=== PATIENT | male | born 1970 | race Caucasian/White ===

== ENCOUNTER → 2017-07-22 | Outpatient (CLI) | payer OTHER ==
[~2017-07-22] MED LIST: ACIDOPHILUS1 EAC1 PO; ALBIPROI INH; ALBU.083IS; ALBU.083IS IH; ALBU2.5V5 INH; ALBU90OI INH; ALBU90OI6 INH; AMOCLA500 PO; AMOCLA875 PO; AMOX500; AMOX875; ASPI325 PO; AZIT250 PO; Augmentin 875-1 EACH PO; BASAGLAR K100 UNIT/1 SC; Bactrim Ds Tab1 EACH PO; CEPH500 PO; CLIN150 PO; CLON1 PO; CLOP75 PO; CODGUAEL PO; DOCU100 PO; DULO30 PO; ERYT.5TO OD; FLUSAL115 INH; FLUT1DIS5 INH; FURO20 PO; GEMF600 PO; GLIP5 PO; HYDACE5 PO; Humalog100 UNIT/1 SC; Hydrocodone-Ap1 EA23 PO; IBUP600 PO; INSR10I SC; INSULANI SC; Keflex500 MG PO; LEVFLO500 PO; LEVO750 PO; LISI20 PO; LISI5 PO; LORA1 PO; METF500 PO; METO25ER; MUPI2TC TOP; MUPI2TO TOP; NEBI5 PO; OXYACE5T PO; OXYACE7.5T PO; OXYC5 PO; OXYGEN 2L AT NIGHT; PIOG15 PO; PRED10 PO; PRED20 PO; PREG150 PO; PREG200 PO; PROBIOTIC1 EACH PO; Percocet 5-3251 EACH PO; Prednisone20 MG PO; RXERYTOPTH OP; RXHYDGUAS PO; RXOXYACE PO; RXSULTRIDS PO; SULTRIDS PO; Sulfamethoxazo1 EAC4 PO; TIOT18 INH; Zofran4 MG PO; [UNRECOGNIZED DRUG - CODE] OP; [UNRECOGNIZED DRUG - REMARK]; [UNRECOGNIZED DRUG - REMARK]
[2017-07-22 10:21] LABS: Albumin, Blood 3.6 g/dL (3.4-5.0); Anion Gap 6 mmol/L (6-16); Blood Urea Nitrogen 12 mg/dL (8-24); Bun/Creatinine Ratio 13.7 (12.0-20.0); CO2, Blood 30 mmol/L (21-32); Calcium, Blood 8.8 mg/dL (8.5-10.1); Chloride, Blood 101 mmol/L (98-108); Creatinine, Blood 0.87 mg/dL (0.60-1.20); Glomerular Filtration Rate >60 (60-); Glucose, Blood 188 mg/dL (70-99); Phosphorus, Blood 4.1 mg/dL (2.5-4.9); Potassium, Blood 4.1 mmol/L (3.5-5.5); Sodium, Blood 137 mmol/L (136-145)
== END ==
LOC: OLS 07:44
PROVIDERS: Family Medicine
DX: E11.9 Type 2 diabetes mellitus without complications (principal)
CPT/HCPCS: 36415; 80069; 83036

== ENCOUNTER → 2017-07-23 | Outpatient (CLI) | payer OTHER ==
[~2017-07-23] MED LIST changes: -ACIDOPHILUS1 EAC1 PO; -ALBU2.5V5 INH; -Augmentin 875-1 EACH PO; -BASAGLAR K100 UNIT/1 SC; -DOCU100 PO; +FLUSAL2505 INH; -FLUT1DIS5 INH; +Humalog100 UNIT/1; -Humalog100 UNIT/1 SC; -Hydrocodone-Ap1 EA23 PO; +OXYC5; -OXYC5 PO; -PROBIOTIC1 EACH PO; -Sulfamethoxazo1 EAC4 PO; +Ventolin Soln3 ML INH
== END | disposition home or self-care (01) ==
LOC: LAB SHORT 17:52 → LAB EV 17:52
DX: L03.031 Cellulitis of right toe (principal)
CPT/HCPCS: 87070; 87075; 87077; 87147; 87186; 87205

== ENCOUNTER 2017-07-28 09:54 | Day surgery (SDC) | payer OTHER ==
[~2017-07-28] VITALS: Ht 185.4 cm; Wt 121.4 kg
[~2017-07-28 09:54] MED LIST changes: -ASPI325 PO; -CLOP75 PO
[2017-07-28] MEDS ORDERED: CLOP75 PO (14:23)
[2017-07-28] MEDS ORDERED: ASPI325 PO (14:44)
== END 2017-07-28 23:22 | disposition home or self-care (01) ==
LOC: MHTC 09:54 → ICUW 16:49 → ICUE 16:54 → MHTC 23:22
PROC: 047K3Z1 Dilation of Right Femoral Artery using Drug-Coated Balloon, Percutaneous Approach (ICD-10-PCS; principal; 2017-07-28)
PROC: 04CK3ZZ Extirpation of Matter from Right Femoral Artery, Percutaneous Approach (ICD-10-PCS; principal; 2017-07-28)
DX: E11.51 Type 2 diabetes mellitus with diabetic peripheral angiopathy without gangrene (principal); I70.235 Atherosclerosis of native arteries of right leg with ulceration of other part of foot; L97.519 Non-pressure chronic ulcer of other part of right foot with unspecified severity; I70.92 Chronic total occlusion of artery of the extremities; I10 Essential (primary) hypertension; J45.909 Unspecified asthma, uncomplicated; G47.33 Obstructive sleep apnea (adult) (pediatric); F41.9 Anxiety disorder, unspecified; F17.210 Nicotine dependence, cigarettes, uncomplicated; Z99.81 Dependence on supplemental oxygen; Z79.4 Long term (current) use of insulin
CPT/HCPCS: 37225; 75630; 75774; 82947; 85347; 93005; 93010; C1714; C1725; C1769; C1884; C1887; C2623; J1644; J2250; J2405; J2720; J3010; J7030; J7040; J7120; Q9967

== ENCOUNTER 2017-11-14 12:17 | Inpatient (IN) | payer OTHER ==
[~2017-11-14] VITALS: Ht 185.4 cm; Wt 117.9 kg
[~2017-11-14 12:17] MED LIST changes: -BASAGLAR K100 UNIT/1 SC; -PROBIOTIC1 EACH PO
[2017-11-14 13:14] LABS: BASOPHILS ABSOLUTE AUTO 0.05 K/mm3 (0.00-0.23); BASOPHILS PERCENT AUTO 1 % (0-2); EOSINOPHILS ABSOLUTE AUTO 0.27 K/mm3 (0.00-0.68); EOSINOPHILS PERCENT AUTO 3 % (0-6); Hemoglobin 19.4 g/dL (13.5-17.5); IMMATURE GRAN ABSOLUTE AUTO 0.05 K/mm3 (0.00-0.10); IMMATURE GRAN PERCENT AUTO 1 % (0-1); LYMPHOCYTES ABSOLUTE AUTO 1.72 K/mm3 (0.84-5.20); LYMPHOCYTES PERCENT AUTO 17 % (21-46); MONOCYTES ABSOLUTE AUTO 1.18 K/mm3 (0.16-1.47); MONOCYTES PERCENT AUTO 12 % (4-13); Mean Corpuscular HGB 30.6 pg (26.0-34.0); Mean Corpuscular HGB Conc 32.9 g/dL (31.5-36.5); Mean Corpuscular Volume 93 fL (80-100); Mean Platelet Volume 9.7 fL (9.1-12.4); NEUTROPHILS ABSOLUTE AUTO 6.85 K/mm3 (1.96-9.15); NEUTROPHILS PERCENT AUTO 68 % (41-73); Platelet Count 182 K/mm3 (150-400); RDW Coefficient Variation 14.1 % (11.7-14.2); Red Blood Cell Count 6.35 M/mm3 (4.30-5.90); White Blood Cell Count 10.12 K/mm3 (4.00-11.30)
[2017-11-14 13:28] LABS: Hematocrit 58.9 % (37.0-53.0)
[2017-11-14 13:35] LABS: Source, Urine Clean Catch
[2017-11-14 13:38] LABS: Alanine Aminotransfer (ALT/SGP 29 U/L (12-78); Albumin, Blood 3.4 g/dL (3.4-5.0); Albumin/Globulin Ratio 0.8 (0.8-1.8); Alk Phos 134 U/L (50-136); Anion Gap 6 mmol/L (6-16); Aspartate Aminotrans (AST/SGOT 26 U/L (12-37); Bilirubin, Total 0.4 mg/dL (0.1-1.0); Blood Urea Nitrogen 8 mg/dL (8-24); Bun/Creatinine Ratio 9.8 (12.0-20.0); CO2, Blood 33 mmol/L (21-32); Calcium, Blood 8.5 mg/dL (8.5-10.1); Chloride, Blood 97 mmol/L (98-108); Creatinine, Blood 0.82 mg/dL (0.60-1.20); Glomerular Filtration Rate >60 (60-); Glucose, Blood 238 mg/dL (70-99); Potassium, Blood 4.3 mmol/L (3.5-5.5); Sodium, Blood 136 mmol/L (136-145); Total Protein, Blood 7.4 g/dL (6.4-8.2)
[2017-11-14 13:40] LABS: Bilirubin, Urine Neg (Neg); Blood, Urine Neg (Neg); Glucose Qualitative, Urine 4+ (Neg); Ketones, Urine Neg (Neg); Leukocyte Esterase, Urine Neg (Neg); Nitrite, Urine Neg (Neg); Protein, Urine 2+ (Neg); Urobilinogen, Urine NORM (Normal)
[2017-11-14 13:51] LABS: Appearance, Urine Clear (Clear); Color, Urine Yellow (P-Yellow)
[2017-11-14 13:52] LABS: Bacteria Not Seen /hpf; Red Blood Cells, Urine Not Seen /hpf (0-2); Squamous Epithelial Cells Not Seen /hpf (Few)
[2017-11-14 13:53] LABS: White Blood Cells, Urine Not Seen /hpf (0-5)
[2017-11-14] MEDS ORDERED: BASAGLAR K100 UNIT/1 SC ×2 (18:15→18:16)
[2017-11-15 04:22] LABS: BASOPHILS ABSOLUTE AUTO 0.04 K/mm3 (0.00-0.23); BASOPHILS PERCENT AUTO 0 % (0-2); EOSINOPHILS ABSOLUTE AUTO 0.35 K/mm3 (0.00-0.68); EOSINOPHILS PERCENT AUTO 3 % (0-6); Hemoglobin 19.5 g/dL (13.5-17.5); IMMATURE GRAN ABSOLUTE AUTO 0.05 K/mm3 (0.00-0.10); IMMATURE GRAN PERCENT AUTO 1 % (0-1); LYMPHOCYTES ABSOLUTE AUTO 1.56 K/mm3 (0.84-5.20); LYMPHOCYTES PERCENT AUTO 15 % (21-46); MONOCYTES ABSOLUTE AUTO 0.94 K/mm3 (0.16-1.47); MONOCYTES PERCENT AUTO 9 % (4-13); Mean Corpuscular HGB 30.2 pg (26.0-34.0); Mean Corpuscular HGB Conc 32.4 g/dL (31.5-36.5); Mean Corpuscular Volume 93 fL (80-100); Mean Platelet Volume 9.7 fL (9.1-12.4); NEUTROPHILS ABSOLUTE AUTO 7.82 K/mm3 (1.96-9.15); NEUTROPHILS PERCENT AUTO 73 % (41-73); Platelet Count 191 K/mm3 (150-400); RDW Coefficient Variation 13.9 % (11.7-14.2); RDW Standard Deviation 47.6 fL (35.1-46.3); Red Blood Cell Count 6.45 M/mm3 (4.30-5.90); White Blood Cell Count 10.76 K/mm3 (4.00-11.30)
[2017-11-15 04:24] LABS: Hematocrit 60.2 % (37.0-53.0)
[2017-11-15 04:41] LABS: Anion Gap 6 mmol/L (6-16); Blood Urea Nitrogen 8 mg/dL (8-24); Bun/Creatinine Ratio 9.1 (12.0-20.0); CO2, Blood 32 mmol/L (21-32); Calcium, Blood 8.4 mg/dL (8.5-10.1); Chloride, Blood 102 mmol/L (98-108); Creatinine, Blood 0.88 mg/dL (0.60-1.20); Glomerular Filtration Rate >60 (60-); Glucose, Blood 92 mg/dL (70-99); Potassium, Blood 4.4 mmol/L (3.5-5.5); Sodium, Blood 140 mmol/L (136-145)
[2017-11-16] MEDS ORDERED: PROBIOTIC1 EACH PO (10:37)
[2017-11-16] MEDS ORDERED: AMOCLA500 PO (10:38)
== END 2017-11-16 14:56 | disposition home or self-care (01) | DRG 464 ==
LOC: ER 12:17 → MEDS 14:40 → ENPENDDIS 11-16 08:42 → MEDS 11-16 14:56
PROVIDERS: Emergency Medicine; Internal Medicine; Podiatrist
PROC: 0JBR0ZZ Excision of Left Foot Subcutaneous Tissue and Fascia, Open Approach (ICD-10-PCS; principal; 2017-11-15 10:45)
DX: M86.9 Osteomyelitis, unspecified (principal); L03.116 Cellulitis of left lower limb; E11.621 Type 2 diabetes mellitus with foot ulcer; Z79.4 Long term (current) use of insulin; J44.9 Chronic obstructive pulmonary disease, unspecified; I10 Essential (primary) hypertension; Z98.62 Peripheral vascular angioplasty status; E11.42 Type 2 diabetes mellitus with diabetic polyneuropathy; Z79.01 Long term (current) use of anticoagulants; Z79.891 Long term (current) use of opiate analgesic; E11.51 Type 2 diabetes mellitus with diabetic peripheral angiopathy without gangrene; G89.4 Chronic pain syndrome; F17.210 Nicotine dependence, cigarettes, uncomplicated; G47.33 Obstructive sleep apnea (adult) (pediatric); F41.9 Anxiety disorder, unspecified; B95.61 Methicillin susceptible Staphylococcus aureus infection as the cause of diseases classified elsewhere; L97.522 Non-pressure chronic ulcer of other part of left foot with fat layer exposed
CPT/HCPCS: 36415; 71046; 73630; 80048; 80053; 81001; 82947; 83605; 85025; 87070; 87071; 87075; 87147; 87186; 87205; 93922; 94640; 94760; 96365; 99285-25; J1650; J2001; J2250; J2543; J3010; J7030; J7120

== ENCOUNTER → 2017-11-14 | Outpatient (CLI) | payer OTHER ==
[~2017-11-14] MED LIST changes: +ASPI325 PO; +BASAGLAR K100 UNIT/1 SC; +CLOP75 PO; +PROBIOTIC1 EACH PO
== END | disposition home or self-care (01) ==
LOC: LAB 11:26 → LAB SHORT 11:26
DX: E11.621 Type 2 diabetes mellitus with foot ulcer (principal); L97.509 Non-pressure chronic ulcer of other part of unspecified foot with unspecified severity
CPT/HCPCS: 87070; 87075; 87147; 87186; 87205

== ENCOUNTER → 2017-12-17 | Outpatient (CLI) | payer OTHER ==
[~2017-12-17] MED LIST changes: +ACIDOPHILUS1 EAC1 PO; +ALBU2.5V5 INH; +Augmentin 875-1 EACH PO; +BASAGLAR K100 UNIT/1 SC; +DOCU100 PO; -FLUSAL2505 INH; +FLUT1DIS5 INH; -Humalog100 UNIT/1; +Humalog100 UNIT/1 SC; +Hydrocodone-Ap1 EA23 PO; -OXYC5; +OXYC5 PO; +PROBIOTIC1 EACH PO; +Sulfamethoxazo1 EAC4 PO; -Ventolin Soln3 ML INH
== END | disposition home or self-care (01) ==
LOC: LAB SHORT 17:10 → LAB 17:10
DX: M86.272 Subacute osteomyelitis, left ankle and foot (principal); E11.621 Type 2 diabetes mellitus with foot ulcer; L97.524 Non-pressure chronic ulcer of other part of left foot with necrosis of bone
CPT/HCPCS: 87071; 87075; 87077; 87185; 87186; 87205

== ENCOUNTER 2017-12-23 17:14 | Inpatient (IN) | payer OTHER ==
[~2017-12-23] VITALS: Ht 185.4 cm; Wt 116.8 kg
[~2017-12-23 17:14] MED LIST changes: -ACIDOPHILUS1 EAC1 PO; -Augmentin 875-1 EACH PO; -DOCU100 PO; -Hydrocodone-Ap1 EA23 PO; -Sulfamethoxazo1 EAC4 PO
[2017-12-23 17:49] LABS: BASOPHILS ABSOLUTE AUTO 0.08 K/mm3 (0.00-0.23); BASOPHILS PERCENT AUTO 1 % (0-2); EOSINOPHILS ABSOLUTE AUTO 0.53 K/mm3 (0.00-0.68); EOSINOPHILS PERCENT AUTO 4 % (0-6); Hemoglobin 19.8 g/dL (13.5-17.5); IMMATURE GRAN ABSOLUTE AUTO 0.03 K/mm3 (0.00-0.10); IMMATURE GRAN PERCENT AUTO 0 % (0-1); LYMPHOCYTES ABSOLUTE AUTO 2.62 K/mm3 (0.84-5.20); LYMPHOCYTES PERCENT AUTO 20 % (21-46); MONOCYTES ABSOLUTE AUTO 1.02 K/mm3 (0.16-1.47); MONOCYTES PERCENT AUTO 8 % (4-13); Mean Corpuscular HGB 30.1 pg (26.0-34.0); Mean Corpuscular HGB Conc 33.1 g/dL (31.5-36.5); Mean Corpuscular Volume 91 fL (80-100); NEUTROPHILS ABSOLUTE AUTO 8.63 K/mm3 (1.96-9.15); NEUTROPHILS PERCENT AUTO 67 % (41-73); Platelet Count 304 K/mm3 (150-400); RDW Standard Deviation 43.8 fL (35.1-46.3); Red Blood Cell Count 6.57 M/mm3 (4.30-5.90); White Blood Cell Count 12.91 K/mm3 (4.00-11.30)
[2017-12-23 17:53] LABS: Hematocrit 59.8 % (37.0-53.0)
[2017-12-23] MEDS ORDERED: Sulfamethoxazo1 EAC4 PO (18:11)
[2017-12-23 18:22] LABS: Alanine Aminotransfer (ALT/SGP 42 U/L (12-78); Albumin, Blood 3.7 g/dL (3.4-5.0); Albumin/Globulin Ratio 0.8 (0.8-1.8); Alk Phos 156 U/L (50-136); Anion Gap 7 mmol/L (6-16); Aspartate Aminotrans (AST/SGOT 28 U/L (12-37); Bilirubin, Total 0.4 mg/dL (0.1-1.0); Blood Urea Nitrogen 13 mg/dL (8-24); Bun/Creatinine Ratio 13.8 (12.0-20.0); CO2, Blood 30 mmol/L (21-32); Calcium, Blood 8.9 mg/dL (8.5-10.1); Chloride, Blood 99 mmol/L (98-108); Creatinine, Blood 0.95 mg/dL (0.60-1.20); Globulin, Blood 4.7 g/dL (2.2-4.0); Glomerular Filtration Rate >60 (60-); Glucose, Blood 157 mg/dL (70-99); Potassium, Blood 4.4 mmol/L (3.5-5.5); Sodium, Blood 136 mmol/L (136-145); Total Protein, Blood 8.4 g/dL (6.4-8.2)
[2017-12-23] MEDS ORDERED: Hydrocodone-Ap1 EA23 PO (18:31)
[2017-12-23] MEDS ORDERED: AZIT250 PO (18:40)
[2017-12-24 04:59] LABS: BASOPHILS ABSOLUTE AUTO 0.09 K/mm3 (0.00-0.23); BASOPHILS PERCENT AUTO 1 % (0-2); EOSINOPHILS ABSOLUTE AUTO 0.56 K/mm3 (0.00-0.68); EOSINOPHILS PERCENT AUTO 5 % (0-6); IMMATURE GRAN ABSOLUTE AUTO 0.05 K/mm3 (0.00-0.10); IMMATURE GRAN PERCENT AUTO 0 % (0-1); LYMPHOCYTES ABSOLUTE AUTO 1.98 K/mm3 (0.84-5.20); LYMPHOCYTES PERCENT AUTO 17 % (21-46); MONOCYTES ABSOLUTE AUTO 1.11 K/mm3 (0.16-1.47); MONOCYTES PERCENT AUTO 9 % (4-13); Mean Corpuscular HGB 29.5 pg (26.0-34.0); Mean Corpuscular HGB Conc 32.3 g/dL (31.5-36.5); Mean Corpuscular Volume 92 fL (80-100); Mean Platelet Volume 9.5 fL (9.1-12.4); NEUTROPHILS ABSOLUTE AUTO 8.19 K/mm3 (1.96-9.15); NEUTROPHILS PERCENT AUTO 68 % (41-73); Platelet Count 270 K/mm3 (150-400); RDW Coefficient Variation 13.2 % (11.7-14.2); RDW Standard Deviation 43.8 fL (35.1-46.3); Red Blood Cell Count 6.43 M/mm3 (4.30-5.90); White Blood Cell Count 11.98 K/mm3 (4.00-11.30)
[2017-12-24 05:05] LABS: Hematocrit 58.9 % (37.0-53.0)
[2017-12-24 05:21] LABS: Anion Gap 5 mmol/L (6-16); Blood Urea Nitrogen 15 mg/dL (8-24); Bun/Creatinine Ratio 17.7 (12.0-20.0); CO2, Blood 32 mmol/L (21-32); Calcium, Blood 8.6 mg/dL (8.5-10.1); Chloride, Blood 102 mmol/L (98-108); Creatinine, Blood 0.85 mg/dL (0.60-1.20); Glomerular Filtration Rate >60 (60-); Glucose, Blood 173 mg/dL (70-99); Potassium, Blood 4.7 mmol/L (3.5-5.5); Sodium, Blood 139 mmol/L (136-145)
[2017-12-25 04:50] LABS: Hemoglobin 18.1 g/dL (13.5-17.5); Mean Corpuscular HGB 29.6 pg (26.0-34.0); Mean Corpuscular HGB Conc 32.1 g/dL (31.5-36.5); Mean Corpuscular Volume 92 fL (80-100); Mean Platelet Volume 9.2 fL (9.1-12.4); Platelet Count 242 K/mm3 (150-400); RDW Coefficient Variation 12.9 % (11.7-14.2); RDW Standard Deviation 43.9 fL (35.1-46.3); Red Blood Cell Count 6.12 M/mm3 (4.30-5.90); White Blood Cell Count 11.43 K/mm3 (4.00-11.30)
[2017-12-25 04:51] LABS: Hematocrit 56.4 % (37.0-53.0)
[2017-12-25] MEDS ORDERED: DOCU100 PO (17:51)
[2017-12-25] MEDS ORDERED: ACIDOPHILUS1 EAC1 PO (17:51)
[2017-12-25] MEDS ORDERED: LEVO750 PO (17:52)
[2017-12-25] MEDS ORDERED: Augmentin 875-1 EACH PO (17:52)
== END 2017-12-25 18:36 | disposition home health service (06) | DRG 617 ==
LOC: ER 17:14 → MEDS 19:08 → ENPENDDIS 12-25 17:35 → MEDS 12-25 18:36
PROVIDERS: Emergency Medicine; Internal Medicine; Podiatrist
PROC: 0QTP0ZZ Resection of Left Metatarsal, Open Approach (ICD-10-PCS; 2017-12-24)
PROC: 0Y6Y0Z0 Detachment at Left 5th Toe, Complete, Open Approach (ICD-10-PCS; principal; 2017-12-24 13:00)
DX: E11.69 Type 2 diabetes mellitus with other specified complication (principal); M86.9 Osteomyelitis, unspecified; I10 Essential (primary) hypertension; E11.40 Type 2 diabetes mellitus with diabetic neuropathy, unspecified; J44.9 Chronic obstructive pulmonary disease, unspecified; F17.210 Nicotine dependence, cigarettes, uncomplicated; G47.33 Obstructive sleep apnea (adult) (pediatric); E66.9 Obesity, unspecified; E11.51 Type 2 diabetes mellitus with diabetic peripheral angiopathy without gangrene; G89.4 Chronic pain syndrome; E11.621 Type 2 diabetes mellitus with foot ulcer; L97.522 Non-pressure chronic ulcer of other part of left foot with fat layer exposed; Z68.34 Body mass index [BMI] 34.0-34.9, adult
CPT/HCPCS: 36415; 80048; 80053; 82947; 85025; 85027; 85651; 86140; 87070; 87075; 87205; 88305; 88311; 94640; 94760; 99284; J1956; J2001; J2250; J3010; J7030; J7120

== ENCOUNTER → 2018-05-15 | Outpatient (CLI) | payer OTHER ==
[~2018-05-15] MED LIST changes: +ACIDOPHILUS1 EAC1 PO; +Augmentin 875-1 EACH PO; +DOCU100 PO; +Hydrocodone-Ap1 EA23 PO; +Sulfamethoxazo1 EAC4 PO
== END | disposition home or self-care (01) ==
LOC: LAB SHORT 14:29 → LAB 14:29
DX: L03.111 Cellulitis of right axilla (principal)
CPT/HCPCS: 87070; 87077; 87186; 87205

== ENCOUNTER 2018-06-29 09:05 | Inpatient (IN) | payer OTHER ==
[~2018-06-29] VITALS: Ht 185.4 cm; Wt 108.9 kg
[~2018-06-29 09:05] MED LIST changes: -ACIDOPHILUS1 EAC1 PO; -Humalog100 UNIT/1 SC; -OXYC5 PO; -PREG200 PO
[2018-06-29 12:20] LABS: BASOPHILS ABSOLUTE AUTO 0.08 K/mm3 (0.00-0.23); BASOPHILS PERCENT AUTO 1 % (0-2); EOSINOPHILS PERCENT AUTO 1 % (0-6); Hemoglobin 19.5 g/dL (13.5-17.5); IMMATURE GRAN ABSOLUTE AUTO 0.06 K/mm3 (0.00-0.10); IMMATURE GRAN PERCENT AUTO 1 % (0-1); LYMPHOCYTES ABSOLUTE AUTO 1.61 K/mm3 (0.84-5.20); LYMPHOCYTES PERCENT AUTO 13 % (21-46); MONOCYTES ABSOLUTE AUTO 1.01 K/mm3 (0.16-1.47); MONOCYTES PERCENT AUTO 8 % (4-13); Mean Corpuscular HGB 28.8 pg (26.0-34.0); Mean Corpuscular HGB Conc 31.4 g/dL (31.5-36.5); Mean Corpuscular Volume 92 fL (80-100); Mean Platelet Volume 9.6 fL (9.1-12.4); NEUTROPHILS ABSOLUTE AUTO 9.27 K/mm3 (1.96-9.15); NEUTROPHILS PERCENT AUTO 76 % (41-73); Platelet Count 199 K/mm3 (150-400); RDW Standard Deviation 46.6 fL (35.1-46.3); Red Blood Cell Count 6.78 M/mm3 (4.30-5.90); White Blood Cell Count 12.13 K/mm3 (4.00-11.30)
[2018-06-29 12:22] LABS: Hematocrit 62.1 % (37.0-53.0)
[2018-06-29 12:29] LABS: Alanine Aminotransfer (ALT/SGP 27 U/L (12-78); Albumin, Blood 3.3 g/dL (3.4-5.0); Albumin/Globulin Ratio 0.8 (0.8-1.8); Alk Phos 159 U/L (50-136); Anion Gap 3 mmol/L (6-16); Aspartate Aminotrans (AST/SGOT 23 U/L (12-37); Bilirubin, Total 0.9 mg/dL (0.1-1.0); Blood Urea Nitrogen 6 mg/dL (8-24); Bun/Creatinine Ratio 8.9 (12.0-20.0); CO2, Blood 34 mmol/L (21-32); Calcium, Blood 8.7 mg/dL (8.5-10.1); Chloride, Blood 99 mmol/L (98-108); Creatinine, Blood 0.68 mg/dL (0.60-1.20); Globulin, Blood 4.2 g/dL (2.2-4.0); Glomerular Filtration Rate >60 (60-); Glucose, Blood 215 mg/dL (70-99); Potassium, Blood 4.6 mmol/L (3.5-5.5); Sodium, Blood 136 mmol/L (136-145); Total Protein, Blood 7.5 g/dL (6.4-8.2)
[2018-06-29] MEDS ORDERED: AZIT250 PO (15:14)
[2018-06-29] MEDS ORDERED: ALBU3IS INH (15:16)
[2018-06-29] MEDS ORDERED: OXYC5 PO (15:21)
[2018-06-29] MEDS ORDERED: ALBU90OI INH (15:23)
[2018-06-29] MEDS ORDERED: PREG200 PO (15:25)
[2018-06-29] MEDS ORDERED: Humalog100 UNIT/1 SC (15:27)
[2018-06-29] MEDS ORDERED: ACIDOPHILUS1 EAC1 PO (15:40)
[2018-06-29] MEDS ORDERED: BASAGLAR K100 UNIT/1 SC (15:41)
[2018-06-29] MEDS ORDERED: GLIP10 (15:44)
[2018-06-30 05:10] LABS: BASOPHILS ABSOLUTE AUTO 0.09 K/mm3 (0.00-0.23); BASOPHILS PERCENT AUTO 1 % (0-2); EOSINOPHILS ABSOLUTE AUTO 0.36 K/mm3 (0.00-0.68); EOSINOPHILS PERCENT AUTO 4 % (0-6); Hemoglobin 19.5 g/dL (13.5-17.5); IMMATURE GRAN ABSOLUTE AUTO 0.03 K/mm3 (0.00-0.10); IMMATURE GRAN PERCENT AUTO 0 % (0-1); LYMPHOCYTES ABSOLUTE AUTO 0.99 K/mm3 (0.84-5.20); LYMPHOCYTES PERCENT AUTO 11 % (21-46); MONOCYTES ABSOLUTE AUTO 0.83 K/mm3 (0.16-1.47); MONOCYTES PERCENT AUTO 9 % (4-13); Mean Corpuscular HGB 28.4 pg (26.0-34.0); Mean Corpuscular HGB Conc 31.1 g/dL (31.5-36.5); Mean Corpuscular Volume 92 fL (80-100); Mean Platelet Volume 10.1 fL (9.1-12.4); NEUTROPHILS ABSOLUTE AUTO 6.53 K/mm3 (1.96-9.15); NEUTROPHILS PERCENT AUTO 74 % (41-73); Platelet Count 186 K/mm3 (150-400); RDW Coefficient Variation 14.6 % (11.7-14.2); Red Blood Cell Count 6.86 M/mm3 (4.30-5.90); White Blood Cell Count 8.83 K/mm3 (4.00-11.30)
[2018-06-30 05:12] LABS: Hematocrit 62.8 % (37.0-53.0)
[2018-06-30 05:31] LABS: Anion Gap 6 mmol/L (6-16); Blood Urea Nitrogen 7 mg/dL (8-24); Bun/Creatinine Ratio 9.3 (12.0-20.0); CO2, Blood 32 mmol/L (21-32); Calcium, Blood 8.3 mg/dL (8.5-10.1); Chloride, Blood 103 mmol/L (98-108); Creatinine, Blood 0.75 mg/dL (0.60-1.20); Glomerular Filtration Rate >60 (60-); Glucose, Blood 109 mg/dL (70-99); Potassium, Blood 4.2 mmol/L (3.5-5.5); Sodium, Blood 141 mmol/L (136-145)
--- NOTE | 2018-06-30 06:05 | NUR ---
VSS, AFEBRILE, A/O, PT ARRIVED ON THE UNIT VIA HIS OWN W/C A DIRECT ADMIT. AT THE BEDSIDE ALL NOC, NPO SINCE ARRIVAL EXCEPT FOR ICE CHIPS, IV ABTX TOLERATED W/OUT ADVERSE EFFECTS, PT ANTICIPATES AMPUTATION OF HIS GREAT TOE TODAY, BOTH FEET HAVE PREVIOUS AMPUTATIONS ALREADY, PT AND HIS CAN BE SOMEWHAT DEMANDING AND IMPATIENT W/STAFF. PT REPORTS BEING ON SELF IMPOSED BED REST FOR THE PAST SEVERAL MONTHS DUE TO THE PAIN FROM THE AMPUTATIONS ON HIS FEET. 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 SLEPT DEEPLY OVERNOC
--- NOTE | 2018-06-30 16:14 | NUR ---
Pt is an inpatient. Patient confirms NPO status and agrees with scheduled surgery. History, Chart, Medications and Allergies reviewed before start of procedure. Pre-Op teaching done. Pt verbalizes understanding. Lungs with wheezing throughout.
--- NOTE | 2018-06-30 17:19 | NUR ---
06/30/18 1719 Alberto Escalona PT RECIEVED ANTIBIOTICS PRIOR TO ARRIVAL TO OR.
--- NOTE | 2018-06-30 19:55 | NUR ---
SHIFT SUMMARY: PT IRRITABLE; COOEPRATIVE WITH CARE. AMPUTATION OF R FOOT 4TH METATARSAL THIS SHIFT; PT TOLERATED WELL; MEDICATED FOR PAIN PER EMAR. PT ON 3L O2 VIA NC; 3L O2 @ HOME. DROPLET ISOLATION FOR HX MRSA IN SPUTUM & WOUND. REPORT GIVEN TO ONCOMING ADONIS.
--- NOTE | 2018-07-01 04:06 | NUR ---
SHIFT SUMMARY THE PT ADMITTED WITH OSTEOMYELITIS OF THE R FOOT. DROPLET ISOLATION FOR MRSA IN SPUTUM FROM 2007. FULL CODE. ADA DIET. ELEVATE RLE ABOVE HIP LEVEL. CBG AT AC AND HS. INDEPENDENT TO W/C. 18G IV TO L FA. TAKES MEDICATIONS WHOLE. 3L O2. THE PT PRESENTED TO THE ED WITH OSTEOLYELITIS OF THE 4TH METATARSAL. THE PT REPORTED A NONHEALKING ULCERATION FO THE PLANTAR ASPECT OF THE BOTTOM OF THE R FOOT AND 4TH METATARSAL WITH OSTEOMYELITIS. THE ULCERATION IS REPORTED TO HAVE BEEN PRESENT FOR MORE THAN A YEAR. THE PT UNDERWENT AMPUTATION OF THE 4TH METATARSAL YESTERDAY. THE PT WAS NOTED TO HAVE DRESSING LEAKING. THIS NURSE CHANGED DRESSING AND APPLIED LIGHT PRESSURE DRESSING TO 4TH METATARSAL AND BOTTOM OF RIGHT FOOT. DEEP WOUND CULTURE COLLECTED AND SENT TO LAB. PAIN HAS REMAINED UNDER CONTROL SO FAR THIS SHIFT THIS NURSE HAS BEEN ENSURE TO REMAIN ON TOP OF MANAGING WITH BOTH ORAL AND IV PAIN MEDICATIONS. THE PT HAS BEEN VERY PLEASENT AND COOPERATIVE WITH CARE. NO APPARENT SIGNS OF ACUTE DISTRESS. APPEARED TO SLEEP COMFORTABLY MOST OF THE NIGHT. ABLE TO MAKE NEEDS KNOWN AND CALL LIGHT IN REACH.
[2018-07-01 05:31] LABS: Vancomycin, Trough 12.8 ug/mL (5.0-10.0)
[2018-07-01] MEDS ORDERED: ACIDOPHILUS LA1 EACH PO (14:18)
[2018-07-01] MEDS ORDERED: LEVO750 PO (14:19)
--- NOTE | 2018-07-01 16:22 | NUR ---
PATIENT D/C'D TO [facility] WITH SPOUSE. RX MEDICATIONS FAXED TO [facility]. D/C INSTRUCTIONS AND EDUCATION DISCUSSED WITH PATIENT AND COPY PROVIDED. PATIENT DENIES ANY FURTHER QUESTIONS OR CONCERNS.
== END 2018-07-01 16:24 | disposition home health service (06) | DRG 854 ==
LOC: ER 09:05 → ERHOLD 15:51 → MEDS 15:51 → ENPENDDIS 07-01 13:19 → MEDS 07-01 16:24
PROVIDERS: Emergency Medicine; Podiatrist; ADMIT Family Medicine
PROC: 0Y6M0ZD Detachment at Right Foot, Partial 4th Ray, Open Approach (ICD-10-PCS; principal; 2018-06-30 16:30)
DX: A41.9 Sepsis, unspecified organism (principal); M86.9 Osteomyelitis, unspecified; E11.69 Type 2 diabetes mellitus with other specified complication; E11.65 Type 2 diabetes mellitus with hyperglycemia; Z79.4 Long term (current) use of insulin; E11.40 Type 2 diabetes mellitus with diabetic neuropathy, unspecified; G47.33 Obstructive sleep apnea (adult) (pediatric); G89.4 Chronic pain syndrome; F17.210 Nicotine dependence, cigarettes, uncomplicated; J44.9 Chronic obstructive pulmonary disease, unspecified; E66.01 Morbid (severe) obesity due to excess calories; Z99.81 Dependence on supplemental oxygen; Z89.432 Acquired absence of left foot
CPT/HCPCS: 36415; 80048; 80053; 80202; 82947; 83605; 85025; 87040; 87070; 87071; 87075; 87077; 87205; 88305; 88311; 94640; 94644; 94760; 96361; 96365; 96366; 96375; 99285-25; J0696; J1815; J2250; J2405; J2543; J3010; J3370; J7030; J7050; J7120

== ENCOUNTER → 2018-07-08 | Outpatient (CLI) | payer OTHER ==
[~2018-07-08] MED LIST changes: +ACIDOPHILUS LA1 EACH PO; +ACIDOPHILUS1 EAC1 PO; +ALBU3IS INH; +GLIP10; +Humalog100 UNIT/1 SC; +OXYC5 PO; +PREG200 PO
[2018-07-08 10:46] LABS: BASOPHILS ABSOLUTE AUTO 0.08 K/mm3 (0.00-0.23); BASOPHILS PERCENT AUTO 1 % (0-2); EOSINOPHILS ABSOLUTE AUTO 0.16 K/mm3 (0.00-0.68); EOSINOPHILS PERCENT AUTO 2 % (0-6); IMMATURE GRAN ABSOLUTE AUTO 0.03 K/mm3 (0.00-0.10); IMMATURE GRAN PERCENT AUTO 0 % (0-1); LYMPHOCYTES PERCENT AUTO 16 % (21-46); MONOCYTES ABSOLUTE AUTO 0.74 K/mm3 (0.16-1.47); MONOCYTES PERCENT AUTO 7 % (4-13); Mean Corpuscular HGB 28.6 pg (26.0-34.0); Mean Corpuscular Volume 92 fL (80-100); Mean Platelet Volume 10.5 fL (9.1-12.4); NEUTROPHILS ABSOLUTE AUTO 7.73 K/mm3 (1.96-9.15); NEUTROPHILS PERCENT AUTO 75 % (41-73); Platelet Count 209 K/mm3 (150-400); RDW Standard Deviation 48.1 fL (35.1-46.3); Red Blood Cell Count 6.65 M/mm3 (4.30-5.90); White Blood Cell Count 10.34 K/mm3 (4.00-11.30)
[2018-07-08 10:49] LABS: Hematocrit 61.2 % (37.0-53.0)
== END | disposition home or self-care (01) ==
LOC: LAB HH 10:40
PROVIDERS: Podiatrist
DX: M86.271 Subacute osteomyelitis, right ankle and foot (principal)
CPT/HCPCS: 85025; 85651

== ENCOUNTER 2018-08-02 15:21 | Emergency (ER) | payer OTHER ==
[~2018-08-02] VITALS: Ht 185.4 cm; Wt 108.9 kg
[2018-08-02 16:22] LABS: BASOPHILS ABSOLUTE AUTO 0.07 K/mm3 (0.00-0.23); BASOPHILS PERCENT AUTO 1 % (0-2); EOSINOPHILS PERCENT AUTO 2 % (0-6); Hemoglobin 19.3 g/dL (13.5-17.5); IMMATURE GRAN ABSOLUTE AUTO 0.05 K/mm3 (0.00-0.10); IMMATURE GRAN PERCENT AUTO 0 % (0-1); LYMPHOCYTES PERCENT AUTO 14 % (21-46); MONOCYTES ABSOLUTE AUTO 1.13 K/mm3 (0.16-1.47); MONOCYTES PERCENT AUTO 8 % (4-13); Mean Corpuscular HGB 28.1 pg (26.0-34.0); Mean Corpuscular HGB Conc 30.6 g/dL (31.5-36.5); Mean Corpuscular Volume 92 fL (80-100); Mean Platelet Volume 10.3 fL (9.1-12.4); NEUTROPHILS ABSOLUTE AUTO 10.33 K/mm3 (1.96-9.15); NEUTROPHILS PERCENT AUTO 74 % (41-73); Platelet Count 196 K/mm3 (150-400); RDW Coefficient Variation 16.7 % (11.7-14.2); RDW Standard Deviation 51.8 fL (35.1-46.3); Red Blood Cell Count 6.88 M/mm3 (4.30-5.90); White Blood Cell Count 13.88 K/mm3 (4.00-11.30)
[2018-08-02] MEDS ORDERED: Zithromax250 MG PO (16:25)
[2018-08-02] MEDS ORDERED: (None)20 M1 PO (16:25)
[2018-08-02 16:41] LABS: Alanine Aminotransfer (ALT/SGP 34 U/L (12-78); Albumin, Blood 3.5 g/dL (3.4-5.0); Albumin/Globulin Ratio 0.9 (0.8-1.8); Alk Phos 150 U/L (50-136); Anion Gap 3 mmol/L (6-16); Aspartate Aminotrans (AST/SGOT 29 U/L (12-37); Bilirubin, Total 0.7 mg/dL (0.1-1.0); Blood Urea Nitrogen 7 mg/dL (8-24); Bun/Creatinine Ratio 9.5 (12.0-20.0); CO2, Blood 33 mmol/L (21-32); Calcium, Blood 8.8 mg/dL (8.5-10.1); Chloride, Blood 101 mmol/L (98-108); Creatinine, Blood 0.74 mg/dL (0.60-1.20); Globulin, Blood 4.1 g/dL (2.2-4.0); Glomerular Filtration Rate >60 (60-); Glucose, Blood 143 mg/dL (70-99); Potassium, Blood 4.3 mmol/L (3.5-5.5); Sodium, Blood 137 mmol/L (136-145); Total Protein, Blood 7.6 g/dL (6.4-8.2)
== END 2018-08-02 16:54 | disposition home or self-care (01) ==
LOC: ER 15:21
PROVIDERS: Physician Assistant
DX: J44.1 Chronic obstructive pulmonary disease with (acute) exacerbation (principal); I10 Essential (primary) hypertension; E11.40 Type 2 diabetes mellitus with diabetic neuropathy, unspecified; F41.9 Anxiety disorder, unspecified; Z99.81 Dependence on supplemental oxygen; Z79.899 Other long term (current) drug therapy; Z79.4 Long term (current) use of insulin; Z87.891 Personal history of nicotine dependence
CPT/HCPCS: 36415; 71046; 80053; 85025; 93005; 93010; 96374; 99284-25; J2930

== ENCOUNTER → 2018-08-21 | Outpatient (CLI) | payer OTHER ==
[~2018-08-21] MED LIST changes: +(None)20 M1 PO; +Zithromax250 MG PO
== END | disposition home or self-care (01) ==
LOC: LAB 08:10 → LAB SHORT 08:10
DX: R05 Cough (principal)
CPT/HCPCS: 87070; 87205

== ENCOUNTER 2018-10-05 18:23 | Inpatient (IN) | payer OTHER ==
[~2018-10-05] VITALS: Ht 185.4 cm; Wt 113.4 kg
[~2018-10-05 18:23] MED LIST changes: -ALBU3IS INH; +ALBU3IS NEB
[2018-10-05 19:03] LABS: BASOPHILS ABSOLUTE AUTO 0.07 K/mm3 (0.00-0.23); BASOPHILS PERCENT AUTO 1 % (0-2); EOSINOPHILS ABSOLUTE AUTO 0.07 K/mm3 (0.00-0.68); EOSINOPHILS PERCENT AUTO 1 % (0-6); Hemoglobin 19.3 g/dL (13.5-17.5); IMMATURE GRAN ABSOLUTE AUTO 0.02 K/mm3 (0.00-0.10); IMMATURE GRAN PERCENT AUTO 0 % (0-1); LYMPHOCYTES ABSOLUTE AUTO 1.32 K/mm3 (0.84-5.20); LYMPHOCYTES PERCENT AUTO 12 % (21-46); MONOCYTES ABSOLUTE AUTO 0.81 K/mm3 (0.16-1.47); MONOCYTES PERCENT AUTO 7 % (4-13); Mean Corpuscular HGB 28.6 pg (26.0-34.0); Mean Corpuscular HGB Conc 29.2 g/dL (31.5-36.5); Mean Corpuscular Volume 98 fL (80-100); Mean Platelet Volume 10.6 fL (9.1-12.4); NEUTROPHILS ABSOLUTE AUTO 9.04 K/mm3 (1.96-9.15); NEUTROPHILS PERCENT AUTO 80 % (41-73); Platelet Count 152 K/mm3 (150-400); RDW Coefficient Variation 16.3 % (11.7-14.2); RDW Standard Deviation 56.5 fL (35.1-46.3); Red Blood Cell Count 6.75 M/mm3 (4.30-5.90); White Blood Cell Count 11.33 K/mm3 (4.00-11.30)
[2018-10-05 19:24] LABS: Alanine Aminotransfer (ALT/SGP 28 U/L (12-78); Albumin, Blood 3.4 g/dL (3.4-5.0); Albumin/Globulin Ratio 0.9 (0.8-1.8); Alk Phos 146 U/L (50-136); Anion Gap 1 mmol/L (6-16); Aspartate Aminotrans (AST/SGOT 33 U/L (12-37); Bilirubin, Total 0.8 mg/dL (0.1-1.0); Blood Urea Nitrogen 8 mg/dL (8-24); Bun/Creatinine Ratio 10.7 (12.0-20.0); CO2, Blood 39 mmol/L (21-32); Calcium, Blood 8.6 mg/dL (8.5-10.1); Chloride, Blood 96 mmol/L (98-108); Creatinine, Blood 0.75 mg/dL (0.60-1.20); Globulin, Blood 3.9 g/dL (2.2-4.0); Glomerular Filtration Rate >60 (60-); Glucose, Blood 170 mg/dL (70-99); Potassium, Blood 5.2 mmol/L (3.5-5.5); Sodium, Blood 136 mmol/L (136-145); Total Protein, Blood 7.3 g/dL (6.4-8.2); Troponin I 0.017 ng/mL (0.000-0.040)
--- NOTE | 2018-10-05 22:40 | NUR ---
ASSUMED CARE REPORT TAKEN FROM ED RN. PT ARRIVED TO UNIT AND WS ABLE TO TRANSFER TO HOSP BED W/O ASSISTANCE. PT ON 5L NC AT THIS TIME, SOME WORK OF BREATHING NOTED. PT DENIES CP. RESP TACHY AND LABORED ON 5L NC W/ SATS 89-91%. PT REPORTS HE IS SOB W/ ANY EXERTION. SPOUSE AT BEDSIDE AND STAYING THE NIGHT. PT DENIES OTHER NEEDS AT THIS TIME. CALL LIGHT IN REACH.
--- NOTE | 2018-10-06 01:20 | NUR ---
PT DISORIENTED UPON WAKING. PER PT HAS BEEN EXPERIENCING IDSORIENTATION WHEN WAKING IN MIDDLE OF NIGHT. PT WAS UNABLE TO ANSWER DIRECT QUESTIONS. PT WAS ABLE TO AMBULATE TO RR, BUT DID NOT APPEAR TO BE ORIENTED TO SITUATION, TIME OR PLACE. PT CALLED THIS RN HIS DAUGHTER. PT BACK TO BED AND FELL ASLEEP QUICKLY. EDUCATED THAT BED ALARM WOULD BE TURNED ON AND THAT SHOULD PRESS CALL BUTTON IF PT NEEDED TO GET UP TO URINATE ANYMORE TONIGHT, D/T DISORIENTATION STAFF NEEDS TO BE IN ROOM WHEN PT STANDS. CALL LIGHT PLACED W/IN REACH OF PT AND .
[2018-10-06 01:55] LABS: Adenovirus Not Detected (NOT DETECT); Bordetella pertussis Not Detected (NOT DETECT); Chlamydophila pneumoniae Not Detected (NOT DETECT); Coronavirus 229E Not Detected (NOT DETECT); Coronavirus HKU1 Not Detected (NOT DETECT); Coronavirus NL63 Not Detected (NOT DETECT); Coronavirus OC43 Not Detected (NOT DETECT); Human Metapneumovirus Not Detected (NOT DETECT); Human Rhinovirus/Enterovirus Not Detected (NOT DETECT); Influenza A Not Detected (NOT DETECT); Influenza A/2009-H1 Not Detected (NOT DETECT); Influenza A/H1 Not Detected (NOT DETECT); Influenza A/H3 Not Detected (NOT DETECT); Influenza B Not Detected (NOT DETECT); Mycoplasma pneumoniae Not Detected (NOT DETECT); Parainfluenza Virus 1 Not Detected (NOT DETECT); Parainfluenza Virus 2 Not Detected (NOT DETECT); Parainfluenza Virus 3 Not Detected (NOT DETECT); Parainfluenza Virus 4 Not Detected (NOT DETECT); Respiratory Syncytial Virus Not Detected (NOT DETECT)
[2018-10-06 04:14] LABS: Hemoglobin 18.8 g/dL (13.5-17.5); Mean Corpuscular HGB 28.8 pg (26.0-34.0); Mean Corpuscular HGB Conc 29.3 g/dL (31.5-36.5); Mean Corpuscular Volume 98 fL (80-100); Mean Platelet Volume 10.6 fL (9.1-12.4); Platelet Count 120 K/mm3 (150-400); RDW Coefficient Variation 15.7 % (11.7-14.2); RDW Standard Deviation 56.7 fL (35.1-46.3); Red Blood Cell Count 6.53 M/mm3 (4.30-5.90); White Blood Cell Count 8.37 K/mm3 (4.00-11.30)
[2018-10-06 04:15] LABS: Hematocrit 64.1 % (37.0-53.0)
--- NOTE | 2018-10-06 06:35 | NUR ---
SHIFT SUMMARY PT RESTING IN ROOM COMFROTABLY AT THIS TIME. PT HAD EPISODE OF DISORIENTATION UPON WAKING T/O NIGHT. PT WAS VERY CONFUSED AND PULLING AT WIRES AND TELE. PT WAS REDIRECTABLE BACK TO BED BUT NEVER WAS REORIENTED TO TIME AND PLACE. BED ALARM WAS SET D/T CONFUSION. PER PT SPOUSE WHO WAS AT BEDSIDE, PT HAS BEEN HAVING EPISODES OF DISORIENTATION UPON WAKING IN MIDDLE OF THE NIGHT "FOR A WHILE NOW". THIS AM UPON WAKING FOR THE MORNING PT WAS MORE ORIENTED, AND WAS ABLE TO ANSWER QUESTIONS TO WHERE AND WHEN HE WAS. PT REPORTS NOT REMEMBERING WAKING UP AND BEING CONFUED LAST NIGHT. RESP EVEN AND TACHY ON 7L HI FLOW NC W/ SATS >91%. REPORTS MILD ABD PAIN THAT IS STARTING TO FEEL BETTER AFTER HAVING BM THIS AM. DENIES OTHER NEEDS. AT BEDSIDE. CALL LIGHT IN REACH.
--- NOTE | 2018-10-06 09:00 | NUR ---
ASSUMED CARE PT ALERT TO SELF, BUT CONFUSED ABOUT SITUATION AND PLACE. PT STATING "I NEED TO GO TO THE HOSPIATAL." PT REORIENTED EASILY. PT PULLING AT TUBES AND LINES. PT CONSTANTLY PULLING OFF TELEMETRY. O2 SATS ABOVE 90% ON 7L HIGH FLOW. PER RT PT REFUSES CPAP. SPOKE WITH DR. SIN ABOUT ABG. DR. SIN DISCUSSED CODE STATUS WIHT PT AND PT WISHES TO BE DNR. AT BEDSIDE DURING CONVERSATION. WILL CONTINUE TO MONITOR CLOSELY.
[2018-10-06 09:39] LABS: PCO2 Arterial 99.3 mmHg (35-45); PO2 Arterial 84.5 mmHg (80-100)
--- NOTE | 2018-10-06 10:20 | NUR ---
PT REQUESTING TO LEAVE ROOM IN WHEELCHAIR WITH . PT ENCOURAGED TO STAY IN ROOM, BUT REFUSES. PT TOLD TO ATLEAST STAY IN DEPARTMENT, SO WE CAN MONITOR TELEMETRY. PT PULLED TELEMETRY OFF. PT LEAVING ROOM WITH . PT EDUCATED ABOUT RISKS OF LEAVING THE ROOM AND THAT WE ARE UNABLE TO MONITOR HIM. PT STATES UNDERSTANDING, BUT LEAVING ANYWAY. WILL AWAIT RETURN.
--- NOTE | 2018-10-06 18:00 | NUR ---
SHIFT SUMMARY PT ALERT AND ORIENTED THIS AFTERNOON. VS STABLE. O2 SATS REMAIN ABOVE 90% ON 7L HIGH FLOW. HR NSR TO SINUS TACH. PT LEAVING ROOM BY WHEELCHAIR TO "GET A BREAK". PT ENCOURAGED TO STAY IN ROOM. AT BEDSIDE ALL SHIFT. PT SITTING UP EATING DINNER AT THIS TIME. PT SHORT OF BREATH WITH EXERTION. NO OTHER CHANGES AT THIS TIME. WILL CONTINUE TO MONITOR AND REPORT TO ONCOMING RN. CALL LIGHT IN REACH.
[2018-10-07 04:32] LABS: BASOPHILS ABSOLUTE AUTO 0.02 K/mm3 (0.00-0.23); BASOPHILS PERCENT AUTO 0 % (0-2); EOSINOPHILS PERCENT AUTO 0 % (0-6); Hemoglobin 18.4 g/dL (13.5-17.5); IMMATURE GRAN ABSOLUTE AUTO 0.07 K/mm3 (0.00-0.10); IMMATURE GRAN PERCENT AUTO 0 % (0-1); LYMPHOCYTES ABSOLUTE AUTO 0.36 K/mm3 (0.84-5.20); LYMPHOCYTES PERCENT AUTO 2 % (21-46); MONOCYTES ABSOLUTE AUTO 0.43 K/mm3 (0.16-1.47); MONOCYTES PERCENT AUTO 2 % (4-13); Mean Corpuscular HGB Conc 29.8 g/dL (31.5-36.5); Mean Corpuscular Volume 98 fL (80-100); Mean Platelet Volume 11.2 fL (9.1-12.4); NEUTROPHILS ABSOLUTE AUTO 17.43 K/mm3 (1.96-9.15); NEUTROPHILS PERCENT AUTO 95 % (41-73); Platelet Count 126 K/mm3 (150-400); RDW Coefficient Variation 15.4 % (11.7-14.2); RDW Standard Deviation 55.7 fL (35.1-46.3); Red Blood Cell Count 6.34 M/mm3 (4.30-5.90); White Blood Cell Count 18.31 K/mm3 (4.00-11.30)
[2018-10-07 04:35] LABS: Hematocrit 61.8 % (37.0-53.0)
[2018-10-07 04:44] LABS: Anion Gap -2 mmol/L (6-16); Blood Urea Nitrogen 17 mg/dL (8-24); CO2, Blood 43 mmol/L (21-32); Calcium, Blood 8.7 mg/dL (8.5-10.1); Chloride, Blood 95 mmol/L (98-108); Creatinine, Blood 0.71 mg/dL (0.60-1.20); Glomerular Filtration Rate >60 (60-); Glucose, Blood 265 mg/dL (70-99); Potassium, Blood 5.7 mmol/L (3.5-5.5); Sodium, Blood 136 mmol/L (136-145)
--- NOTE | 2018-10-07 06:32 | NUR ---
PCU NOC SHIFT SUMMARY PATIENT ALERT AND ORIENTED X4 WITH AT BEDSIDE T/O SHIFT. PATIENT COMPLIANT WITH QUESTIONS AND CARE. PATIENT REPORTS CHRONIC ONGOING PAIN IN ABD DUE TO A HERNIA REPAIR IN 2008 (HERNIA NOTED WITH HEALED SCAR ACROSS AMBILICUS) - BOWEL MOVEMENT NORMAL PER PATIENT THIS SHIFT. VSS WITH PATIENT ON 8 LPM HIGH FLOW CANNULA - PATIENT WAS COMPLIANT WITH BIPAP AND TOLERATED FOR APPROX 6 HOURS T/O THE SHIFT. PATIENT AMBULATES IN ROOM WITH STEADY GAIT INDEPENDANTLY. NO ACUTE EVENTS OR FINDINGS NOTED; PATIENT REPORTS THAT HIS 'BREATHING' IS GETTING BETTER AND HE IS HOPING TO GO HOME SOON. WILL CONTINUE TO MONITOR AND GIVE REPORT TO DAYSHIFT RN.
--- NOTE | 2018-10-07 12:35 | NUR ---
WENT IN ROOM TO TAKE PT'S BLOOD SUGAR. PT UPSET THAT HE IS NOT RECEIVED THE SAME INSULIN THAT HE GETS AT HOME. PT INFORMED THAT WE DO NOT HAVE THAT MEDICATION AVAILABLE AND THAT HE COULD BRING IN HIS HOME MEDICATION. PT UPSET AND YELLING AT STAFF. PT STATES THAT WE ARE NOT "DOING ANYTHIHG FOR HIM". CHARGE NURSE LINDA CAME IN THE ROOM TO DISCUSS PLAN OF CARE WITH PT. PT STATES HE WOULD LIKE TO LEAVE. RISKS OF LEAVING DISCUSSED WITH PT BY THIS RN AND CARE MANAGEMENT COORDINATOR. PT PERSISTENT ABOUT LEAVING. DR. SIN CALLED AND AWARE. PT LEAVING AMA. AMA FORM HAS BEEN SIGNED.
== END 2018-10-07 12:57 | disposition left against medical advice (07) | DRG 189 ==
LOC: ER 18:23 → PCU 20:54
PROVIDERS: Emergency Medicine; Hospitalist; Nurse Practitioner Acute Care; ADMIT Internal Medicine
DX: J96.21 Acute and chronic respiratory failure with hypoxia (principal); J44.1 Chronic obstructive pulmonary disease with (acute) exacerbation; E11.40 Type 2 diabetes mellitus with diabetic neuropathy, unspecified; E11.21 Type 2 diabetes mellitus with diabetic nephropathy; E66.01 Morbid (severe) obesity due to excess calories; D75.1 Secondary polycythemia; I10 Essential (primary) hypertension; G47.33 Obstructive sleep apnea (adult) (pediatric); Z66 Do not resuscitate; F41.1 Generalized anxiety disorder; F17.210 Nicotine dependence, cigarettes, uncomplicated; E11.51 Type 2 diabetes mellitus with diabetic peripheral angiopathy without gangrene; G89.4 Chronic pain syndrome; Z79.4 Long term (current) use of insulin; Z99.81 Dependence on supplemental oxygen
CPT/HCPCS: 36415; 36600; 71045; 80048; 80053; 82803; 82947; 83880; 84484; 85025; 85027; 87070; 87081; 87486; 87581; 87633; 87798; 93005; 93010; 93971; 94640; 94644; 94660; 94762; 96374; 99285-25; J1940; J2930

== ENCOUNTER 2019-01-28 19:46 | Emergency (ER) | payer OTHER ==
[~2019-01-28] VITALS: Ht 154.9 cm; Wt 110.1 kg
[2019-01-28] MEDS ORDERED: Loratadine10 MG PO (20:09)
[2019-01-28] MEDS ORDERED: MONTELUKAST SOD10 MG PO (20:10)
[2019-01-28 20:46] LABS: BASOPHILS ABSOLUTE AUTO 0.05 K/mm3 (0.00-0.23); BASOPHILS PERCENT AUTO 0 % (0-2); EOSINOPHILS ABSOLUTE AUTO 0.66 K/mm3 (0.00-0.68); EOSINOPHILS PERCENT AUTO 6 % (0-6); Hematocrit 48.5 % (37.0-53.0); Hemoglobin 16.2 g/dL (13.5-17.5); IMMATURE GRAN ABSOLUTE AUTO 0.08 K/mm3 (0.00-0.10); IMMATURE GRAN PERCENT AUTO 1 % (0-1); LYMPHOCYTES ABSOLUTE AUTO 1.89 K/mm3 (0.84-5.20); LYMPHOCYTES PERCENT AUTO 16 % (21-46); MONOCYTES ABSOLUTE AUTO 1.22 K/mm3 (0.16-1.47); MONOCYTES PERCENT AUTO 10 % (4-13); Mean Corpuscular HGB 31.3 pg (26.0-34.0); Mean Corpuscular HGB Conc 33.4 g/dL (31.5-36.5); Mean Corpuscular Volume 94 fL (80-100); Mean Platelet Volume 9.8 fL (9.1-12.4); NEUTROPHILS ABSOLUTE AUTO 8.07 K/mm3 (1.96-9.15); NEUTROPHILS PERCENT AUTO 67 % (41-73); Platelet Count 233 K/mm3 (150-400); RDW Coefficient Variation 13.7 % (11.7-14.2); RDW Standard Deviation 47.5 fL (35.1-46.3); Red Blood Cell Count 5.18 M/mm3 (4.30-5.90); White Blood Cell Count 11.97 K/mm3 (4.00-11.30)
[2019-01-28 21:08] LABS: Alanine Aminotransfer (ALT/SGP 33 U/L (12-78); Albumin, Blood 3.6 g/dL (3.4-5.0); Albumin/Globulin Ratio 0.9 (0.8-1.8); Alk Phos 114 U/L (50-136); Anion Gap 2 mmol/L (6-16); Aspartate Aminotrans (AST/SGOT 24 U/L (12-37); Bilirubin, Total 0.8 mg/dL (0.1-1.0); Blood Urea Nitrogen 9 mg/dL (8-24); Bun/Creatinine Ratio 10.8 (12.0-20.0); CO2, Blood 32 mmol/L (21-32); Calcium, Blood 8.9 mg/dL (8.5-10.1); Chloride, Blood 102 mmol/L (98-108); Creatinine, Blood 0.83 mg/dL (0.60-1.20); Globulin, Blood 3.8 g/dL (2.2-4.0); Glomerular Filtration Rate >60 (60-); Glucose, Blood 149 mg/dL (70-99); Potassium, Blood 3.9 mmol/L (3.5-5.5); Sodium, Blood 136 mmol/L (136-145); Total Protein, Blood 7.4 g/dL (6.4-8.2)
[2019-01-28] MEDS ORDERED: Cleocin HCl300 MG PO (23:34)
[2019-01-30] MEDS ORDERED: OXYC5 PO (10:46)
== END 2019-01-29 01:52 | disposition home or self-care (01) ==
LOC: ER 19:46
PROVIDERS: Physician Assistant
DX: L02.214 Cutaneous abscess of groin (principal); E11.40 Type 2 diabetes mellitus with diabetic neuropathy, unspecified; I10 Essential (primary) hypertension; J44.9 Chronic obstructive pulmonary disease, unspecified; F41.9 Anxiety disorder, unspecified; Z87.891 Personal history of nicotine dependence; Z79.51 Long term (current) use of inhaled steroids; Z79.4 Long term (current) use of insulin; Z79.899 Other long term (current) drug therapy
CPT/HCPCS: 36415; 72193; 80053; 83605; 85025; 94640; 96361; 96365-59; 96366; 96375-59; 99284-25; J1885; J3370; J7050; J7120; Q9967

== ENCOUNTER 2019-01-29 20:25 | Emergency (ER) | payer OTHER ==
[~2019-01-29] VITALS: Ht 185.4 cm; Wt 109.8 kg
[~2019-01-29 20:25] MED LIST changes: +Cleocin HCl300 MG PO; +Loratadine10 MG PO; +MONTELUKAST SOD10 MG PO
[2019-01-30] MEDS ORDERED: OXYC5 PO (10:46)
== END 2019-01-30 00:13 | disposition home or self-care (01) ==
LOC: ER 20:25
DX: L02.214 Cutaneous abscess of groin (principal); L03.314 Cellulitis of groin; Z79.4 Long term (current) use of insulin; Z79.899 Other long term (current) drug therapy; I10 Essential (primary) hypertension; J45.909 Unspecified asthma, uncomplicated; E11.40 Type 2 diabetes mellitus with diabetic neuropathy, unspecified; J44.9 Chronic obstructive pulmonary disease, unspecified; F41.9 Anxiety disorder, unspecified; Z87.891 Personal history of nicotine dependence
CPT/HCPCS: 36415; 96365; 96366; 99282-25; A9270; J3370; J7050

== ENCOUNTER 2019-01-30 10:30 | Emergency (ER) | payer OTHER ==
[~2019-01-30] VITALS: Ht 185.4 cm; Wt 109.8 kg
[2019-01-30] MEDS ORDERED: OXYC5 PO (10:46)
[2019-01-30 11:45] LABS: Calcium, Ionized (POC) 1.03 mmol/L (1.10-1.46); Chloride (POC) 97 mmol/L (98-108); Creatinine (POC) 0.7 mg/dL (0.8-1.3); Glucose (ISTAT POC) 221 mg/dL (70-99); Hemoglobin (POC) 16.7 g/dL (13.5-17.5); Potassium (POC) 4.2 mmol/L (3.5-5.5); Sodium (POC) 137 mmol/L (135-148); Total CO2 (POC) 31 mmol/L (21-32)
[2019-01-30 12:18] LABS: Vancomycin, Trough 6.1 ug/mL (5.0-10.0)
== END 2019-01-30 15:07 | disposition home or self-care (01) ==
LOC: ER 10:30
PROVIDERS: Emergency Medicine
DX: L02.214 Cutaneous abscess of groin (principal); I10 Essential (primary) hypertension; E11.40 Type 2 diabetes mellitus with diabetic neuropathy, unspecified; J44.9 Chronic obstructive pulmonary disease, unspecified; F41.9 Anxiety disorder, unspecified; E11.69 Type 2 diabetes mellitus with other specified complication; M86.9 Osteomyelitis, unspecified; Z87.891 Personal history of nicotine dependence; Z79.899 Other long term (current) drug therapy; Z79.4 Long term (current) use of insulin
CPT/HCPCS: 80047; 80202; 85014; 96374; 99282-25; J3370; J7050

== ENCOUNTER 2019-01-30 21:53 | Emergency (ER) | payer OTHER ==
[~2019-01-30] VITALS: Ht 185.4 cm; Wt 109.8 kg
== END 2019-01-31 00:35 | disposition home or self-care (01) ==
LOC: ER 21:53
DX: L02.215 Cutaneous abscess of perineum (principal); I10 Essential (primary) hypertension; E11.40 Type 2 diabetes mellitus with diabetic neuropathy, unspecified; J44.9 Chronic obstructive pulmonary disease, unspecified; F17.210 Nicotine dependence, cigarettes, uncomplicated; Z79.899 Other long term (current) drug therapy; Z79.4 Long term (current) use of insulin
CPT/HCPCS: 96365; 96366; J3370; J7050

== ENCOUNTER 2019-01-31 16:37 | Emergency (ER) | payer OTHER ==
[~2019-01-31] VITALS: Ht 185.4 cm; Wt 110.7 kg
== END 2019-01-31 19:10 | disposition home or self-care (01) ==
LOC: ER 16:37
DX: L02.215 Cutaneous abscess of perineum (principal); I10 Essential (primary) hypertension; E11.40 Type 2 diabetes mellitus with diabetic neuropathy, unspecified; J44.9 Chronic obstructive pulmonary disease, unspecified; F41.9 Anxiety disorder, unspecified; Z87.891 Personal history of nicotine dependence; Z79.899 Other long term (current) drug therapy; Z79.4 Long term (current) use of insulin
CPT/HCPCS: 96365; 96366; J3370; J7050

== ENCOUNTER → 2019-03-23 | Outpatient (CLI) | payer OTHER | END | disposition home or self-care (01) | LOC: LAB 18:01 → LAB SHORT 18:01 | DX: L03.031 Cellulitis of right toe (principal); L97.522 Non-pressure chronic ulcer of other part of left foot with fat layer exposed; L97.512 Non-pressure chronic ulcer of other part of right foot with fat layer exposed | CPT/HCPCS: 87070; 87077; 87186; 87205 ==

== ENCOUNTER 2019-09-16 19:43 | Emergency (ER) | payer OTHER ==
[~2019-09-16] VITALS: Ht 185.4 cm; Wt 113.4 kg
[~2019-09-16 19:43] MED LIST changes: -ALBU3IS NEB; -Humalog100 UNIT/1 SC; -Loratadine10 MG PO; -MONTELUKAST SOD10 MG PO; -PREG200 PO
[2019-09-16 20:21] LABS: PCO2 Venous 79.7 mmHg (38-42); PO2 Venous 25.6 mmHg (38-42); pH Blood Venous 7.36 (7.34-7.37)
[2019-09-16 20:26] LABS: BASOPHILS ABSOLUTE AUTO 0.08 K/mm3 (0.00-0.23); BASOPHILS PERCENT AUTO 1 % (0-2); EOSINOPHILS ABSOLUTE AUTO 0.09 K/mm3 (0.00-0.68); EOSINOPHILS PERCENT AUTO 1 % (0-6); Hemoglobin 20.1 g/dL (13.5-17.5); IMMATURE GRAN ABSOLUTE AUTO 0.04 K/mm3 (0.00-0.10); IMMATURE GRAN PERCENT AUTO 0 % (0-1); LYMPHOCYTES ABSOLUTE AUTO 1.53 K/mm3 (0.84-5.20); LYMPHOCYTES PERCENT AUTO 12 % (21-46); MONOCYTES PERCENT AUTO 10 % (4-13); Mean Corpuscular HGB 29.6 pg (26.0-34.0); Mean Corpuscular Volume 98 fL (80-100); Mean Platelet Volume 10.3 fL (9.1-12.4); NEUTROPHILS ABSOLUTE AUTO 9.59 K/mm3 (1.96-9.15); NEUTROPHILS PERCENT AUTO 77 % (41-73); Platelet Count 149 K/mm3 (150-400); RDW Coefficient Variation 13.2 % (11.7-14.2); RDW Standard Deviation 48.6 fL (35.1-46.3); White Blood Cell Count 12.53 K/mm3 (4.00-11.30)
[2019-09-16 20:29] LABS: Hematocrit 66.9 % (37.0-53.0)
[2019-09-16 21:09] LABS: Alanine Aminotransfer (ALT/SGP 37 U/L (12-78); Albumin, Blood 3.2 g/dL (3.4-5.0); Albumin/Globulin Ratio 0.8 (0.8-1.8); Alk Phos 142 U/L (50-136); Anion Gap 5 mmol/L (6-16); Aspartate Aminotrans (AST/SGOT 30 U/L (12-37); Bilirubin, Total 0.9 mg/dL (0.1-1.0); Blood Urea Nitrogen 8 mg/dL (8-24); CO2, Blood 39 mmol/L (21-32); Calcium, Blood 8.6 mg/dL (8.5-10.1); Chloride, Blood 88 mmol/L (98-108); Creatinine, Blood 0.89 mg/dL (0.60-1.20); Globulin, Blood 4.2 g/dL (2.2-4.0); Glomerular Filtration Rate >60 (60-); Glucose, Blood 338 mg/dL (70-99); Sodium, Blood 132 mmol/L (136-145); Total Protein, Blood 7.4 g/dL (6.4-8.2)
[2019-09-16] MEDS ORDERED: Duoneb 2.5-0.5 M3 ML NEB (21:49)
[2019-09-16] MEDS ORDERED: ALBU90OI INH (21:49)
[2019-09-16] MEDS ORDERED: OXYC5 PO (21:50)
[2019-09-16] MEDS ORDERED: ADMELOG100 UNIT/1 SC (21:51)
[2019-09-16] MEDS ORDERED: AZIT250 PO (21:52)
[2019-09-16] MEDS ORDERED: BASAGLAR K100 UNIT/2 SC (21:54)
[2019-09-16] MEDS ORDERED: MONTELUKAST SOD10 MG PO (21:54)
[2019-09-16] MEDS ORDERED: Loratadine10 MG PO (21:54)
[2019-09-16] MEDS ORDERED: TIOT18 INH (21:55)
[2019-09-16] MEDS ORDERED: WIXELA 500-501 EACH INH (21:56)
[2019-09-16] MEDS ORDERED: PREG200 PO (21:56)
[2019-09-16] MEDS ORDERED: PRED20 PO (22:27)
== END 2019-09-16 22:40 | disposition left against medical advice (07) ==
LOC: ER 19:43
PROVIDERS: Emergency Medicine
DX: J96.92 Respiratory failure, unspecified with hypercapnia (principal); J44.1 Chronic obstructive pulmonary disease with (acute) exacerbation; R09.02 Hypoxemia; E66.01 Morbid (severe) obesity due to excess calories; Z68.33 Body mass index [BMI] 33.0-33.9, adult; I10 Essential (primary) hypertension; I25.2 Old myocardial infarction; E11.40 Type 2 diabetes mellitus with diabetic neuropathy, unspecified; F17.210 Nicotine dependence, cigarettes, uncomplicated; Z79.899 Other long term (current) drug therapy; Z79.4 Long term (current) use of insulin
CPT/HCPCS: 71046; 80053; 82803; 83880; 84484; 85025; 93005; 93010; 94640; 96374; 99285-25; J2930

== ENCOUNTER 2019-09-30 14:14 | Inpatient (IN) | payer OTHER ==
[~2019-09-30] VITALS: Ht 185.4 cm; Wt 107.5 kg
[~2019-09-30 14:14] MED LIST changes: +ADMELOG100 UNIT/1 SC; +BASAGLAR K100 UNIT/2 SC; +Duoneb 2.5-0.5 M3 ML NEB; +Loratadine10 MG PO; +MONTELUKAST SOD10 MG PO; +PREG200 PO; +WIXELA 500-501 EACH INH
[2019-09-30 15:18] LABS: BASOPHILS ABSOLUTE AUTO 0.06 K/mm3 (0.00-0.23); BASOPHILS PERCENT AUTO 0 % (0-2); EOSINOPHILS ABSOLUTE AUTO 0.01 K/mm3 (0.00-0.68); EOSINOPHILS PERCENT AUTO 0 % (0-6); Hematocrit 63.4 % (37.0-53.0); Hemoglobin 19.2 g/dL (13.5-17.5); IMMATURE GRAN ABSOLUTE AUTO 0.04 K/mm3 (0.00-0.10); IMMATURE GRAN PERCENT AUTO 0 % (0-1); LYMPHOCYTES ABSOLUTE AUTO 1.25 K/mm3 (0.84-5.20); LYMPHOCYTES PERCENT AUTO 8 % (21-46); MONOCYTES ABSOLUTE AUTO 1.17 K/mm3 (0.16-1.47); MONOCYTES PERCENT AUTO 8 % (4-13); Mean Corpuscular HGB 29.1 pg (26.0-34.0); Mean Corpuscular HGB Conc 30.3 g/dL (31.5-36.5); Mean Corpuscular Volume 96 fL (80-100); Mean Platelet Volume 10.1 fL (9.1-12.4); NEUTROPHILS PERCENT AUTO 84 % (41-73); Platelet Count 166 K/mm3 (150-400); RDW Coefficient Variation 13.7 % (11.7-14.2); RDW Standard Deviation 49.2 fL (35.1-46.3); Red Blood Cell Count 6.59 M/mm3 (4.30-5.90); White Blood Cell Count 15.63 K/mm3 (4.00-11.30)
[2019-09-30 15:30] LABS: Alanine Aminotransfer (ALT/SGP 30 U/L (12-78); Albumin, Blood 2.8 g/dL (3.4-5.0); Albumin/Globulin Ratio 0.7 (0.8-1.8); Alk Phos 152 U/L (50-136); Anion Gap 0 mmol/L (6-16); Aspartate Aminotrans (AST/SGOT 32 U/L (12-37); Bilirubin, Total 0.9 mg/dL (0.1-1.0); Blood Urea Nitrogen 10 mg/dL (8-24); Bun/Creatinine Ratio 12.6 (12.0-20.0); CO2, Blood 40 mmol/L (21-32); Calcium, Blood 8.5 mg/dL (8.5-10.1); Chloride, Blood 93 mmol/L (98-108); Creatinine, Blood 0.79 mg/dL (0.60-1.20); Globulin, Blood 4.2 g/dL (2.2-4.0); Glomerular Filtration Rate >60 (60-); Glucose, Blood 322 mg/dL (70-99); Potassium, Blood 5.1 mmol/L (3.5-5.5); Sodium, Blood 133 mmol/L (136-145)
[2019-09-30] MEDS ORDERED: QUIT 22 MG BC (18:27)
[2019-09-30] MEDS ORDERED: Ativan1 MG PO (18:28)
[2019-09-30] MEDS ORDERED: FUROSEMIDE20 MG PO (18:48)
[2019-09-30] MEDS ORDERED: OXYC10TA19 PO (18:51)
--- NOTE | 2019-09-30 18:58 | NUR ---
ED Palliative Care Consult Spoke with Dr Keys and discussed case. Dr Keys reports Pt would like to be admitted to hospital and have his toe amputated. Pt is on hospice and wants to revocate. Pt will be admitted. Pt resting on gurny upon arrival. Engaged in therapeutic discussion regarding goals of care. Listened as Pt reports plan for amputation then re-admit onto hospice services. Offered therapuetic litening as Pt states "I'm on hospice for COPD and I don't want to from an infection". Encouraged to elaborate further on fears. Pt reports he knows he is dying from COPD but does not think he will soon from it. Pt reports fear of developing an infection of his toe and dying sooner. Pt also reports wanting his toe amputated to improve his quality of life. He reports hospice is not able to manage his discomfort. Instructed Pt Palliative Care will F/U tomorrow. Called [facility] and spoke with ADONIS Solitario. Discussed case with Kassi reporting Pt already D/C from hospice services. Palliative Care to F/U with Pt and assess emotional readiness for end of life care.
--- NOTE | 2019-09-30 21:23 | NUR ---
ASSUMED CARE RECEIVED REPORT FROM OMARI TOBIN RN. ASSUMED CARE OF PT. TRANSFERRED TO MEDICAL FLOOR VIA W/C. NO S/S ACUTE DISTRESS NOTED. SETTLED IN AND ORIENTED TO ROOM. PT DENIES NEEDS AT THIS TIME. CALL LIGHT AND POSSESSIONS IN REACH, WILL CONTINUE TO MONITOR.
--- NOTE | 2019-10-01 01:05 | NUR ---
0105 THIS RN IN ROOM ASSESSING PT, BI-OX ALARMING. O2 SATS BETWEEN 83-88% ON CPAP WITH 4L BLEED IN. RT PAGED, PT O2 TITRATED TO 6L. SATS BETWEEN 88-90%. PT DENIES DYSPNEA, SOB. WILL CONTINUE TO MONITOR.
[2019-10-01 05:34] LABS: BASOPHILS ABSOLUTE AUTO 0.06 K/mm3 (0.00-0.23); BASOPHILS PERCENT AUTO 1 % (0-2); EOSINOPHILS ABSOLUTE AUTO 0.08 K/mm3 (0.00-0.68); EOSINOPHILS PERCENT AUTO 1 % (0-6); IMMATURE GRAN ABSOLUTE AUTO 0.03 K/mm3 (0.00-0.10); IMMATURE GRAN PERCENT AUTO 0 % (0-1); LYMPHOCYTES ABSOLUTE AUTO 1.67 K/mm3 (0.84-5.20); LYMPHOCYTES PERCENT AUTO 13 % (21-46); MONOCYTES ABSOLUTE AUTO 1.06 K/mm3 (0.16-1.47); MONOCYTES PERCENT AUTO 8 % (4-13); Mean Corpuscular HGB 28.8 pg (26.0-34.0); Mean Corpuscular HGB Conc 29.9 g/dL (31.5-36.5); Mean Corpuscular Volume 96 fL (80-100); Mean Platelet Volume 10.1 fL (9.1-12.4); NEUTROPHILS ABSOLUTE AUTO 9.85 K/mm3 (1.96-9.15); NEUTROPHILS PERCENT AUTO 77 % (41-73); Platelet Count 159 K/mm3 (150-400); RDW Coefficient Variation 13.7 % (11.7-14.2); RDW Standard Deviation 49.4 fL (35.1-46.3); Red Blood Cell Count 6.59 M/mm3 (4.30-5.90); White Blood Cell Count 12.75 K/mm3 (4.00-11.30)
[2019-10-01 05:35] LABS: Hematocrit 63.5 % (37.0-53.0)
[2019-10-01 05:56] LABS: Anion Gap -1 mmol/L (6-16); Blood Urea Nitrogen 11 mg/dL (8-24); Bun/Creatinine Ratio 15.9 (12.0-20.0); CO2, Blood 39 mmol/L (21-32); Calcium, Blood 8.3 mg/dL (8.5-10.1); Chloride, Blood 98 mmol/L (98-108); Creatinine, Blood 0.69 mg/dL (0.60-1.20); Glomerular Filtration Rate >60 (60-); Glucose, Blood 176 mg/dL (70-99); Potassium, Blood 4.6 mmol/L (3.5-5.5); Sodium, Blood 136 mmol/L (136-145)
--- NOTE | 2019-10-01 07:53 | NUR ---
SHIFT SUMMARY PT HAS HAD AN UNEVENTFUL NIGHT. TOLERATED CPAP WELL, O2 SATS CONTINUING TO FLUCTUATE. DENIES DYSPNEA, REPORTS SOB WITH EXERTION. RESPS EVEN AND UNLABORED. VS STABLE. PT NPO SINCE MIDNIGHT FOR POTENTIAL PROCEDURE TODAY. PT DENIES NEEDS AT THIS TIME. CALL LIGHT, POSSESSIONS IN REACH, REPORT GIVEN TO DAY RN.
--- NOTE | 2019-10-01 10:36 | NUR ---
very frusterated this am when shift started, breathing treatments not what he wanted and pt in pain and short of caffeine responded to rt, was able to work some concession and get caffeine in pt and he much more cooperative now, talking to pallalitive care nurse now, at bed side
--- NOTE | 2019-10-01 10:55 | NUR ---
Met with Fortino and his Danitza this morning. He is currently NPO and awaiting surgery for a wound on his right foot that will not heal. He reports he started hospice services about 2 weeks ago for his lung disease but suspended hospice services so he could come into the hospital to have a foot surgery. He reports he isn't ready to yet and he wants to have the foot surgery to improve the quality of his life. He tells this telegraphic typewriter repairer that he quit smoking this week. He reports he started smoking at age 8 and is just "tired of it." He declines a nicotine patch currently. Answered questions re: his lab tests, culture results. Discussed the differences between HH and hospice services. He reports that he recently spoke with Sunshine, pediatric medical assistant, and that he would like to have HH services after he is dicharged. He and his both appear to not be quite ready to resume hospice at discharge. Discussed the option of going home with HH and eventually transitioning into hospice when he is ready for that service. Both are in agreement with the plan for HH after discharge at this time.
--- NOTE | 2019-10-01 13:04 | NUR ---
PHARMACY CALLED TO SAY THEY COULD NOT SEE AN ORDER FOR LYRICA, CHANGED ORDER AND CALLED PHARMACY BACK TO REQUEST THEY REVIEW AND CONFIRM, AWAITING RESPONSE
--- NOTE | 2019-10-01 14:34 | NUR ---
History, Chart, Medications and Allergies reviewed before start of procedure. Patient confirms NPO status and agrees with scheduled surgery. Pre-Op teaching done. Pt verbalizes understanding PT ON 4L NC. LS WITH EXP WHEEZES T/O. VANCO INFUSING
--- NOTE | 2019-10-01 19:31 | NUR ---
returned from procedure, dressing cdi, call light in reach, 4L via nc, abx infusing with no sx/s of infection or infiltration, bsr shared with pt and nurse
--- NOTE | 2019-10-02 04:40 | NUR ---
SHIFT SUMMARY PT HAS HAD NO ACUTE CHANGES THIS SHIFT, MEDCIATED PER MAR FOR PAIN, R FOOT DRESSING CDI, CLEANED & REDRESSED L FOOT, PT SLEPT T/O MOST OF NIGHT, DANGLING @ BEDSIDE AT THIS TIME, CALL LIGHT IN REACH, WILL CONT TO MONITOR UNTIL REPORT GIVEN TO DAY RN.
--- NOTE | 2019-10-02 08:09 | NUR ---
PT LEFT AMA AT 0808. NURSING MANAGER EMPLOYEE RELATIONS, RAUL IN ROOM AT 0803 AND DISCUSSED PT CONCERNS WITH PATIENT. PT UPSET, CURSING AND DEMANDING HIS LYRICA FROM PHARMACY SO THAT HE COULD LEAVE. NURSING MANAGER EMPLOYEE RELATIONS STATED TO PATIENT THAT WE WOULD LIKE TO CONTINUE TO CARE FOR PATIENT, PT REFUSED. PATIENT STATED THAT HE IS UPSET THAT HIS WAS NOT ALLOWED TO VISIT DESPITE BEING ALLOWED TO VISIT IN HIS PRIOR HOSPITALIZATION DAYS. PATIENT DEMANDING HIS "DISCHARGE PAPERWORK." THIS NURSE EDUCATED PT THAT SINCE HE IS LEAVING AMA, THERE IS NOT DISCHAGRE PAPERWORK AND NO FURTHER ORDERS. IV DISCONTINUED AND LYRICA RETURNED. PT STATED THAT HE DID NOT HAVE OXYGEN TO GET DOWNSTAIRS WITH, THIS NURSE AND RAUL OFFERD HELP DOWN TO EXIT INCLUDING OXYGEN TANK, PT REFUSED. PT CONCERNED THAT "THERE IS STILL PACKING IN FOOT" THIS NURSE ENCOURAGED HIM TO FOLLOW UP WITH DR VENEGAS FOR FURTHER CARE FOR WOUND. PT STATED THAT HE "ALREADY CALLED DR VENEGAS." CHARGE NURSE AWARE OF SITUATION.
== END 2019-10-02 08:10 | disposition left against medical advice (07) | DRG 854 ==
LOC: ER 14:14 → MEDS 20:36
PROVIDERS: Physician Assistant; Podiatrist; ADMIT Family Medicine
PROC: 0Y6X0Z0 Detachment at Right 5th Toe, Complete, Open Approach (ICD-10-PCS; principal; 2019-10-01 13:30)
DX: A41.9 Sepsis, unspecified organism (principal); J96.11 Chronic respiratory failure with hypoxia; J44.1 Chronic obstructive pulmonary disease with (acute) exacerbation; M86.9 Osteomyelitis, unspecified; M00.9 Pyogenic arthritis, unspecified; E11.621 Type 2 diabetes mellitus with foot ulcer; L97.514 Non-pressure chronic ulcer of other part of right foot with necrosis of bone; Z79.4 Long term (current) use of insulin; G47.33 Obstructive sleep apnea (adult) (pediatric); E11.69 Type 2 diabetes mellitus with other specified complication; E11.40 Type 2 diabetes mellitus with diabetic neuropathy, unspecified; Z95.820 Peripheral vascular angioplasty status with implants and grafts; Z89.421 Acquired absence of other right toe(s); F17.210 Nicotine dependence, cigarettes, uncomplicated
CPT/HCPCS: 36415; 71045; 73630; 80048; 80053; 82947; 83605; 85025; 87071; 87075; 87077; 87186; 87205; 94640; 94660; 94760; 94762; 96365; 99285-25; J0692; J1815; J2250; J2543; J2704; J2930; J3010; J3370; J7030; J7050; J7120

== ENCOUNTER 2020-12-24 21:44 | Observation (INO) | payer OTHER ==
[~2020-12-24] VITALS: Ht 180.3 cm; Wt 127.0 kg
[~2020-12-24 21:44] MED LIST changes: +ADMELOG SO100 UNIT/2 SC; -ADMELOG100 UNIT/1 SC; +Ativan1 MG PO; +FUROSEMIDE20 MG PO; +NICOTINE GUM2 M1 BC; +OXYC10TA19 PO
--- NOTE | 2020-12-25 02:24 | NUR ---
suction set up at bedside
[2020-12-25] MEDS ORDERED: FOLI1 PO (02:58)
[2020-12-25] MEDS ORDERED: BASAGLAR K100 UNIT/6 SC (03:00)
[2020-12-25] MEDS ORDERED: FLUT1DIS8 INH (03:02)
[2020-12-25] MEDS ORDERED: GUAI600T33 PO (03:02)
[2020-12-25] MEDS ORDERED: IPRAT-ALBUT 0.5-3 ML INH (03:04)
--- NOTE | 2020-12-25 03:51 | NUR ---
COLLECTION SUPPORT SPECIALIST SUMMARY PT ADMITTED TO FLOOR AT 0045. CONTINUES TO BE ON 15L VIA NRB FOR COMFORT. PT HAS BEEN NON-RESPONSIVE SINCE ADMISSION. PT HAD BEEN SUCTIONED FOR SECRETIONS. PRN SUCTION SET AT BED SIDE. FAMILY IN ROOM. COMFORT MEASURES PROVIDED. PT DID NOT SHOW ANY SIGNS OF PAIN OVERNIGHT. CALL LIGHT WITHIN REACH, BED ALARM ON, WILL CONTINUE TO MONITOR.
--- NOTE | 2020-12-25 11:14 | NUR ---
Comfort Care Visit Pt resting in bed with his eyes closed. Pt is non responsive and appears moderately dyspneic as evidenced by work of breathing and repiratory rate. Secretions noted. Family at bedside along with Roll Up Machine Operator Brittani. Engaged in therapeutic listening and answered questions. Discussed plan of care and goal to have oxygen titrated down for comfort. Reviewed plan to offer Roxanol to assit with air hunger. Family is in agreement. Spoke with Primary RN Mali, discussed case, and reviewed comfort medications. Spoke with Dr Ross and discussed case. Palliative Care will remain available for symptom management and supportive visits.
--- NOTE | 2020-12-25 13:23 | NUR ---
F/U visit this afternoon. Recieved call from Primary RN Mali and discussed case. Pt experiencing air hunger and anxiety. Pt resting in bed with head of bed elevated to 90 degrees. Dyspnea and restlessness noted. Called and spoke with Dr Ross. Placed order for Haldol 1-2mg IV PRN per V/O from Dr Ross. Reviewed comfort medications with Mali. Pt may benefit from haloperidol for comfort. Palliative Care will remain available.
--- NOTE | 2020-12-25 20:12 | NUR ---
multiple family members present in room. PT sleeping denies unmet needs from family.
--- NOTE | 2020-12-26 03:51 | NUR ---
PT co severe anxiety pain , medicated with haldol roxinol. familty at bedside.
--- NOTE | 2020-12-26 04:06 | NUR ---
Had discussed PT & Family CO anxiety unrelieved by Q 4 hr 1 to 2 mg oral ativan & pain unrelieved by roxinol 20 mg sl Q 1 hr & fentanyl 50 mxg Q 4 hrs. Discussed with family & MD Daniel updated & comfort care orders liberalized to 1-2 mg oral ativan Q 3 hrs prn anxiety agitation & fentanyl 50 mcg IV q 3 hrs PRN from Q 4 hrs PRN. Sleeping soundly currently with family at bedside.
--- NOTE | 2020-12-26 09:52 | NUR ---
Comfort Care Visit Pt resting in bed with his eyes closed. Pt appears more comfortable this AM in comparison to yesterday. Pt still appears mildly tense and anxious. Primary RN Mali in offering comfort medications. Assisted Mali with repositioning Pt in bed. Pt's spouse at bedside. Offered therapeutic listening and answered questions. Palliative Care will remain available.
--- NOTE | 2020-12-26 10:28 | NUR ---
BED BATH AND REPOSITIONED
--- NOTE | 2020-12-26 14:46 | NUR ---
HARD CAST REMOVED BY ED RN'S RENETTA
--- NOTE | 2020-12-26 14:55 | NUR ---
TITRATED O2 TO 2L NC
--- NOTE | 2020-12-27 02:50 | NUR ---
pt ON COMFORT MEASURES WITH MULTIPLE FAMILY MEMBERS AT BEDSIDE. aPPERS COMFORTABLE WITH CURRENT RX FOR PAIN AIRHUNGER ANXIETY,
--- NOTE | 2020-12-27 09:16 | NUR ---
Comfort Care Visit Pt resting in bed with his eyes closed. Pt's family at bedside. Pt remains with his eyes closed throughout visit. Pt appears anxious and dyspneic as evidenced by constant movement of upper extremities and work of breathing. Offered therapeutic listening for family and answered questions. Spoke with ADONIS Meneses and discussed case. Relayed Pt's discomfort and reviewed comfort medications. Palliative Care will remain available.
--- NOTE | 2020-12-27 13:42 | NUR ---
Introduction: RN suggest to rail car mechanic in hallway to visit pt and family in room. Assessment: 50 y/o male pt presented laying in bed not awake. Spouse of pt present in room shared pt's history of illness and spoke about their spiritual beliefs. Spouse introduced adult child in room. Spouse expressed her feelings toward the illness of her and shared she feels she has come to terms after a long year of watching his health decline. Spouse of pt shared they may need a Hair Spinning Machine Operator later but were currently waiting for additional family to come by to see pt. Intervention: Cultivated a relationship of care and support. Explored spiritual and emotoinal resources. Provided bereavment and spiritual support. Provided words of comfort. Follow up: Follow up for emotional and spiritual support as needed or requested.
--- NOTE | 2020-12-27 17:46 | NUR ---
Arrived to Pt's room. Pt just shortly before this RN's arrival. Family at [facility]. Offered condolences and therapeutic listening. Family is requesting [place] Guard President Sales And Marketing. Family expresses appreciation of the compassion and care Pt received. Palliative Care will remain available.
--- NOTE | 2020-12-27 18:22 | NUR ---
AT 1704. CONFIRMED BY THIS RN AND SECOND RN MARIALUISA.
--- NOTE | 2020-12-28 11:18 | NUR ---
Introduction: This visit happened 12/27/2020 while admissions representative. Assessment: 50 y/o male with spouse and grown children present in room. Room was deem and family was sitting around bed of pt. Spouse of pt tearfully shared the experience of her husbsands passing and how she felt sad. Spouse spoke of the timing of the loss of her and how she felt it was divinely appointed. Spouse asked for prayer and annointing for her children as they will not have their father. Intervention: Cultivated a relationship of care and support. Explored spiritual and relational resources and needs. Fuse Coiler Fox provided sacred readings and prayer for family prior to my arrival. I had built a repore with family prior to pt's passing and was additionally requested by family to attend this time with family. Provided prayer for family according to families aubree tradition. Follow up: No follow up needed at this time.
== END 2020-12-27 17:04 ==
LOC: ER 21:44 → MEDS 21:45
PROVIDERS: ADMIT Internal Medicine
DX: J44.9 Chronic obstructive pulmonary disease, unspecified (principal); G93.40 Encephalopathy, unspecified; E11.621 Type 2 diabetes mellitus with foot ulcer; E11.51 Type 2 diabetes mellitus with diabetic peripheral angiopathy without gangrene; L97.519 Non-pressure chronic ulcer of other part of right foot with unspecified severity; E11.40 Type 2 diabetes mellitus with diabetic neuropathy, unspecified; I10 Essential (primary) hypertension; Z66 Do not resuscitate; Z99.81 Dependence on supplemental oxygen; Z79.4 Long term (current) use of insulin; Z87.891 Personal history of nicotine dependence; Z88.8 Allergy status to other drugs, medicaments and biological substances; Z51.5 Encounter for palliative care; Z74.09 Other reduced mobility
CPT/HCPCS: 96374; 96375; 96376; 99285-25; A9270; G0378; J1630; J2060; J2310; J3010